=== PATIENT | male | born 1985 | race Caucasian/White ===

== ENCOUNTER 2018-03-06 12:43 | Emergency (ER) | payer BC ==
--- NOTE | 2018-03-06 13:29 | EDM.PDOC ---
ED HPI GENERAL MEDICAL PROBLEM - General Chief Complaint: ENT Problem Stated Complaint: JAW PAIN Time Seen by Provider: 03/06/18 13:10 Source of Information: Reports: Patient History Limitations: Reports: No Limitations - History of Present Illness INITIAL COMMENTS - FREE TEXT/NARRATIVE: 32 -year-old male presents for evaluation and treatment of left-sided TMJ pain. Patient reports that the pain started around 0130 this morning. States pain woke him from sleep. He is primarily complaining of pain to the left TMJ radiating to his left ear, left sinuses and head. He is also reporting significant dental pain, worse to the left lower teeth. He denies any nausea, vomiting, fevers, chills, cough or facial swelling. Patient's reports he has been experiencing a bad taste in his mouth. Patient reports he was seen in [place] several years ago and was told that he has TMJ dysfunction. Was instructed to see a dentist whom he did see several years ago. Reports that he pulled some teeth. He has not seen a dentist since this. Acknowledges that he has poor dentition with multiple missing teeth and caries. 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 Left Oral/Mouth Pain Score (Numeric/FACES): 9 - Related Data Allergies Allergy/AdvReac Type Severity Reaction Status Date / Time amoxicillin Allergy Anaphylactic Verified 03/06/18 12:54 Shock Penicillins Allergy Anaphylactic Verified 03/06/18 12:54 Shock Home Meds: Home Meds Acetaminophen/oxyCODONE [Percocet 325-5 MG] 1 each PO Q6HR PRN #12 tab 03/06/18 [Rx] Clindamycin HCl 300 mg PO Q6HR #40 capsule 03/06/18 [Rx] Ibuprofen 800 mg PO TID 03/06/18 [History] Past Medical History HEENT History: Reports: Other (See Below) Other HEENT History: TMJ Musculoskeletal History: Reports: Back Pain, Chronic Neurological History: Reports: Migraines - Past Surgical History HEENT Surgical History: Reports: Oral Surgery, Tonsillectomy Social & Family History - Family History Family Medical History: Noncontributory - Tobacco Use Smoking Status *Q: Current Every Day Smoker Years of Tobacco use: 20 Packs/Tins Daily: 0.5 - Caffeine Use Caffeine Use: Reports: Coffee - Recreational Drug Use Recreational Drug Use: No ED ROS ENT - Review of Systems Review Of Systems: See Below Constitutional: Denies: Fever, Chills HEENT: Reports: Dental Pain (left lower molars), Ear Pain (left), Sinus Problem (left maxillary), Other (reports a bad taste in his mouth) GI/Abdominal: Denies: Nausea, Vomiting ED EXAM, ENT - Physical Exam Exam: See Below Exam Limited By: No Limitations General Appearance: Alert, WD/WN, No Apparent Distress Eye Exam: Bilateral Eye: Normal Inspection Ears: Normal External Exam, Normal Canal, Hearing Grossly Normal, Normal TMs Nose: Normal Inspection Mouth/Throat: Normal Inspection, Normal Gums, Normal Lips, Normal Oropharynx, Normal Teeth, Dental Abcess (#18), Dental Pain (#18 and #19), Dental Trauma ( broken #18; multiple broken teeth), Other (gingivitis with gum regression and erythema; multiple carries; hallatosis) Head: Sinus Tenderness (left maxillary), Other (left TMJ has no crepitus, joint is in place, pain with palpation to he left TMJ) Neck: Normal Inspection. No: Lymphadenopathy (L), Lymphadenopathy (R) Respiratory/Chest: No Respiratory Distress, Lungs Clear, Normal Breath Sounds Cardiovascular: Normal Peripheral Pulses, Regular Rate, Rhythm, No Murmur Neurological: Alert, Oriented, Normal Cognition Psychiatric: Normal Affect, Normal Mood Skin: Warm, Dry, Normal Color Course - Vital Signs Last Recorded V/S: Last Vital Signs Temp 98.9 F 03/06/18 13:38 Pulse 69 03/06/18 13:38 Resp 15 03/06/18 13:38 BP 139/83 03/06/18 13:38 Pulse Ox 98 03/06/18 13:38 Departure - Departure Time of Disposition: 13:23 Disposition: Home, Self-Care 01 Condition: Fair Clinical Impression: Dental abscess - Discharge Information *PRESCRIPTION DRUG MONITORING PROGRAM REVIEWED*: Yes *COPY OF PRESCRIPTION DRUG MONITORING REPORT IN PATIENT TARYN: No Prescriptions: Acetaminophen/oxyCODONE [Percocet 325-5 MG] 1 each PO Q6HR PRN #12 tab PRN Reason: Pain Clindamycin HCl 300 mg PO Q6HR #40 capsule Instructions: Dental Abscess, [id number] Referrals: PCP,None [Primary Care Provider] - Forms: ED Department Discharge Additional Instructions: Clindamycin 1 tab every 6 hours for 10 days. Take this medication with food. This medication can cause C. difficile colitis. Recommend taking a probiotic or yogurt to help reduce your chances of this. Follow-up with a dentist as soon as you able to. [id number] Tylenol or Motrin as needed for pain. I do recommend Aleve or naproxen twice a day. Do not take more than 4 g Tylenol from all sources in 1 day. Do not take more than 3200 mg of ibuprofen from all sources in 1 day. For pain not relieved by Tylenol or motion he may take Percocet 1 tab every 4-6 hours. Percocet is habit-forming, take as few of these as needed for pain. Do not drive or operate machinery within 10 hours of taking Percocet. [facility] is the only pharmacy open today. They open from 1 to 3 PM. Please return to the ER if your symptoms change or worsen.
== END 2018-03-06 13:38 | disposition home or self-care (01) ==
LOC: JD.ED 12:43
DX: K04.7 Periapical abscess without sinus (principal); F17.210 Nicotine dependence, cigarettes, uncomplicated; Z88.1 Allergy status to other antibiotic agents; Z88.0 Allergy status to penicillin
CPT/HCPCS: 99283

== ENCOUNTER 2020-05-24 20:59 | Emergency (ER) | payer BC, MEDICAID ==
--- NOTE | 2020-05-24 21:23 | EDM.PDOC ---
ED HPI GENERAL MEDICAL PROBLEM - General Chief Complaint: Genitourinary Problem Stated Complaint: ENLARGED TESTICLE Time Seen by Provider: 05/24/20 21:10 Source of Information: Reports: Patient, RN Notes Reviewed History Limitations: Reports: No Limitations - History of Present Illness INITIAL COMMENTS - FREE TEXT/NARRATIVE: Patient is a 35-year-old male who presents to the ED for the evaluation of a swollen right testicle. The patient notes that he woke up this morning and appreciated that his right testicle is a little bit more large than his left testicle. He notes there was some slight tenderness associated with this. He characterizes more to the back of the testicle itself. He took some ibuprofen this morning, and that seemed to help most of the tenderness/swelling, and then he went deer hunting all day. He states he did not really eat or drink much, and he took some naproxen when he got home as well due to the swelling still being present. He would rate his pain at a 6 out of 10. He denies any fevers or chills, nausea/vomiting/diarrhea, any urinary issues, he denies any drainage coming from the penis itself. He denies any chance of STD, as he states he has monogamous sex with his . r testicle Pain Score (Numeric/FACES): 6 - Related Data Allergies Allergy/AdvReac Type Severity Reaction Status Date / Time amoxicillin Allergy Anaphylactic Verified 05/24/20 21:09 Shock Penicillins Allergy Anaphylactic Verified 05/24/20 21:09 Shock Home Meds: Home Meds Levofloxacin [Levaquin] 500 mg PO DAILY #13 tablet 05/24/20 [Rx] Past Medical History HEENT History: Reports: Other (See Below) Other HEENT History: TMJ Musculoskeletal History: Reports: Back Pain, Chronic Neurological History: Reports: Migraines - Past Surgical History HEENT Surgical History: Reports: Oral Surgery, Tonsillectomy Social & Family History - Family History Family Medical History: No Pertinent Family History - Tobacco Use Tobacco Use Status *Q: Current Every Day Tobacco User Years of Tobacco use: 20 Packs/Tins Daily: 0.5 - Caffeine Use Caffeine Use: Reports: Coffee - Alcohol Use Days Per Week of Alcohol Use: 7 Number of Drinks Per Day: 3 Total Drinks Per Week: 21 - Recreational Drug Use Recreational Drug Use: No ED ROS GENERAL - Review of Systems Review Of Systems: Comprehensive ROS is negative, except as noted in HPI. ED EXAM, RENAL/ - Physical Exam Exam: See Below Exam Limited By: No Limitations General Appearance: Alert, WD/WN, No Apparent Distress Respiratory/Chest: No Respiratory Distress, Lungs Clear, Normal Breath Sounds, No Accessory Muscle Use, Chest Non-Tender Cardiovascular: Normal Peripheral Pulses, Regular Rate, Rhythm, No Murmur GI/Abdominal: Normal Bowel Sounds, Soft, Non-Tender, No Distention, No Mass (Male) Exam: No Hernia, Normal Inspection, Circumcised, Scrotal Swelling (mild posterior swelling noted to R testicle), Scrotum Tenderness (R) (very slig ht tenderness). No: Penile Lesions, Rash Rectal (Males) Exam: Deferred Extremities: Normal Inspection, Normal Capillary Refill Neurological: Alert, Oriented, Normal Cognition, No Motor/Sensory Deficits Psychiatric: Normal Affect, Normal Mood Skin Exam: Warm, Dry, Intact, Normal Color, No Rash Course - Vital Signs Last Recorded V/S: Last Vital Signs Temp 98.4 F 05/24/20 21:17 Pulse 93 05/24/20 21:07 Resp 15 05/24/20 21:07 BP 139/82 05/24/20 21:07 Pulse Ox 100 05/24/20 21:07 - Orders/Labs/Meds Orders: Active Orders 24 hr Category Date Time Status Scrotum and Contents [US] Stat Exams 05/24/20 21:10 Ordered levoFLOXacin [Levaquin] Med 05/24/20 22:15 Once 500 mg PO ONETIME ONE - Re-Assessments/Exams Free Text/Narrative Re-Assessment/Exam: 05/24/20 21:26 The patient presents to the ED for his swollen right testicle. For tonight's purposes we will obtain ultrasound for evaluation. Most likely this is a hydrocele on clinical exam. 05/24/20 22:15 Ultrasound demonstrates normal testicles, but enlarged epididymides, with increased blood flow within the right epididymis, which may suggest superimposed epididymitis. But there is no evidence of abscess. Patient be started on p.o. Levaquin. Departure - Departure Time of Disposition: 22:22 Disposition: Home, Self-Care 01 Condition: Good Clinical Impression: Epididymitis - Discharge Information *PRESCRIPTION DRUG MONITORING PROGRAM REVIEWED*: No *COPY OF PRESCRIPTION DRUG MONITORING REPORT IN PATIENT TARYN: No Instructions: Epididymitis Referrals: PCP,None [Primary Care Provider] - Forms: ED Department Discharge Additional Instructions: You were evaluated in the ER today for your right testicular swelling. Your ultrasound demonstrated epididymitis, which is an infection of the epididymis, this is the structure that attaches your testicle in your scrotum. Treatment for this is antibiotics, to be 1 tablet of Levaquin 500 mg daily for the next 2 weeks. Your first dose was given in the ER, and you will need to turkey picker the rest your prescription tomorrow at [facility] located near [facility] from 12 to 4 PM. As tomorrow is Tuesday, they were only open during that timeframe, so you will need to go there and get these medications to take them as prescribed to continue your course of antibiotics. If you do not notice any results, within 3 days, please seek care for reevaluation. These antibiotics may take up to 48 hours to start working. You may use Tylenol 500 mg or ibuprofen 600 mg every 6 hours as needed for further pain relief. Do not exceed 4000 mg Tylenol or 3200 mg ibuprofen in a 24-hour time span. Recommend you follow-up with your regular care provider, sometime by the end of the course of antibiotics to make sure that everything is getting better as expected. Please return to the ER at any time if symptoms change or worsen. Sepsis Event Note (ED) - Evaluation Sepsis Screening Result: No Definite Risk - Focused Exam Vital Signs: Vital Signs Temp Pulse Resp BP Pulse Ox 05/24/20 21:17 98.4 F 05/24/20 21:07 93 15 139/82 100 - My Orders Last 24 Hours: My Active Orders 05/24/20 21:10 Scrotum and Contents [US] Stat 05/24/20 22:15 levoFLOXacin [Levaquin] 500 mg PO ONETIME ONE - Assessment/Plan Last 24 Hours: My Active Orders 05/24/20 21:10 Scrotum and Contents [US] Stat 05/24/20 22:15 levoFLOXacin [Levaquin] 500 mg PO ONETIME ONE
[2020-05-24] MEDS ORDERED: Levofloxacin 500 MG Tab PO ONE (22:15)
--- NOTE | 2020-05-26 09:38 | US ---
PROCEDURE INFORMATION: Exam: US Scrotum Exam date and time: 05/24/2020 9:41 PM Age: 35 years old Clinical indication: Swelling, testicles or scrotum; Patient HX: Swelling in right testicle starting this am TECHNIQUE: Imaging protocol: Real-time ultrasound of the scrotum and contents with color Doppler and image documentation. COMPARISON: No relevant prior studies available. FINDINGS: Right testicle: The right testicle measures 4.6 x 2.8 x 2.3 cm and is normal in appearance. There is no evidence of an intratesticular mass. There is normal blood flow in the right testicle. Left testicle: The left testicle measures 4.1 x 2.7 x 2.0 cm and is normal in appearance. There is no evidence of an intratesticular mass. There is normal blood flow in the left testicle. Epididymides: The epididymides are enlarged bilaterally. There is increased blood flow in the right epididymis compared with the left. Scrotum: There is trace fluid surrounding each testicle, within physiologic limits. IMPRESSION: 1. Normal sonographic appearance of the testicles. 2. Enlarged epididymides, a finding which is usually due to spermatic duct obstruction in the setting of vasectomy. Is the patient status post vasectomy? Increased blood flow in the right epididymis might suggest superimposed epididymitis. There is no evidence of abscess. Thank you for allowing us to participate in the care of your patient. Dictated and Authenticated by: Ainsley August MD 05/24/2020 11:11 PM Central Time ([place] & [place]) SIM
== END 2020-05-24 22:30 | disposition home or self-care (01) ==
LOC: JD.ED 20:59
DX: N45.1 Epididymitis (principal); F17.210 Nicotine dependence, cigarettes, uncomplicated; Z88.1 Allergy status to other antibiotic agents; Z88.0 Allergy status to penicillin
CPT/HCPCS: 76870; 93975; 99284; A9270; 99283